=== PATIENT | female | born 1970 | race Caucasian/White ===

== ENCOUNTER 2021-08-16 12:15 | Inpatient (IN) | payer OTHER ==
[~2021-08-16] VITALS: Ht 175.3 cm; Wt 138.3 kg
[~2021-08-16 12:15] MED LIST: AUGMENTIN 875875 M1 PO; TOBREX5 ML OP
[2021-08-16 12:20] VITALS: BP 157/84
[2021-08-16] MEDS ORDERED: METFORMIN HCL500 M2 PO (12:24)
[2021-08-16] MEDS ORDERED: LEVOTHYROXINE50 MC1 PO (12:24)
[2021-08-16 13:24] LABS: ABSOLUTE LYMPHOCYTES 0.5 thou/uL (0.8-5.3); ABSOLUTE MONOCYTES 0.2 thou/uL (0.0-1.2); ABSOLUTE NEUTROPHILS 2.7 thou/uL (1.6-8.1); BASOPHILS 0.6 %; EOSINOPHILS 0.1 %; HEMATOCRIT 39.5 % (37.0-47.0); HEMOGLOBIN 13.6 gm/dL (12.0-15.0); LYMPHOCYTES 13.4 %; MCH 29.3 pg (26.0-34.0); MCHC 34.4 g/dL (28.0-37.0); MCV 85.1 fL (80.0-100.0); MONOCYTES 6.5 %; MPV 8.3 fl. (7.2-11.1); NUCLEATED RBCS 0 /100WBC; PLATELET COUNT* 189 thou/uL (150-400); POLYS 79.4 %; RBC 4.65 mil/uL (4.20-5.00); RDW-CV 13.5 % (10.5-14.5); WBC 3.4 thou/uL (4.0-11.0)
[2021-08-16 13:29] LABS: CALCIUM 7.8 mg/dL (8.5-10.1); CREATININE 0.8 mg/dL (0.6-1.3); POTASSIUM 4.4 mmol/L (3.5-5.1)
[2021-08-16 13:31] LABS: APTT 29.1 Seconds (25.0-31.3); INR 1.1; PROTIME 11.4 Seconds (9.20-11.50)
[2021-08-16 13:40] LABS: ALBUMIN 2.7 g/dL (3.4-5.0); TOTAL BILIRUBIN 0.7 mg/dL (<0.1-1.0); TOTAL PROTEIN 7.1 g/dL (6.4-8.2)
[2021-08-16 16:33] LABS: PCO2 32.1 mmHg (35.0-45.0); pH 7.455 (7.340-7.450)
--- NOTE | 2021-08-16 16:38 | EKG ---
[place] [address] ELECTROCARDIOGRAM REPORT Name: JANIS PARK Room: [place] [address] ADM IN [facility]#: [id number] Admission: 08/16/21 Attend Phys: Ashlie Miranda Discharge: Date of : 72 Date of Service: 08/16/21 1441 Report #: [id number] THIS REPORT FOR: //name// [facility] ED Test Date: 2021-08-16 Test Time: 14:41:17 Pat Name: JANIS DONAHUELER Department: Room: [facility] Gender: F Storeroom Clerk: : 1970 Requested By: Doron Mei Order Number: [id number] MD: Yousif Falcon Measurements Intervals Carpenter Rate: 101 P: 34 [place]: 170 QRS: -12 QRSD: 89 T: 33 QT: 345 QTc: 448 Interpretive Statements Sinus tachycardia RSR' in V1 or V2, probably normal variant No previous ECG available for comparison Electronically Signed On 08-16-2021 16:38:18 [employer] by Yousif Falcon [email or web address] <ELECTRONICALLY SIGNED> By: Yousif Falcon MD, [facility] 08/16/21 1638 1441 1441 Yousif Falcon MD, [facility] /EPI
[2021-08-16] MEDS ORDERED: MUPIROCIN22 GM TOP (18:25)
[2021-08-16] MEDS ORDERED: CEPHALEXIN500 MG PO (18:25)
[2021-08-16 18:35] VITALS: BP 132/78
[2021-08-16 22:00] VITALS: BP 117/67
[2021-08-17] VITALS (8 sets, daily range): BP systolic 108–134; BP diastolic 60–95
[2021-08-17 04:03] LABS: HEMATOCRIT 38.5 % (37.0-47.0); MCH 29.2 pg (26.0-34.0); MCHC 33.8 g/dL (28.0-37.0); MCV 86.3 fL (80.0-100.0); MPV 8.1 fl. (7.2-11.1); RBC 4.46 mil/uL (4.20-5.00); RDW-CV 13.6 % (10.5-14.5); WBC 3.8 thou/uL (4.0-11.0)
[2021-08-17 08:18] LABS: CALCIUM 7.9 mg/dL (8.5-10.1); CREATININE 0.8 mg/dL (0.6-1.3); POTASSIUM 3.7 mmol/L (3.5-5.1)
[2021-08-18 04:08] VITALS: BP 128/74
[2021-08-18 05:21] LABS: ABSOLUTE LYMPHOCYTES 0.5 thou/uL (0.8-5.3); ABSOLUTE MONOCYTES 0.5 thou/uL (0.0-1.2); ABSOLUTE NEUTROPHILS 6.1 thou/uL (1.6-8.1); BASOPHILS 0.1 %; HEMATOCRIT 36.5 % (37.0-47.0); HEMOGLOBIN 12.3 gm/dL (12.0-15.0); LYMPHOCYTES 7.2 %; MCH 29.1 pg (26.0-34.0); MCHC 33.7 g/dL (28.0-37.0); MCV 86.4 fL (80.0-100.0); MONOCYTES 7.3 %; MPV 7.7 fl. (7.2-11.1); NUCLEATED RBCS 0 /100WBC; PLATELET COUNT* 249 thou/uL (150-400); POLYS 85.4 %; RBC 4.22 mil/uL (4.20-5.00); RDW-CV 13.8 % (10.5-14.5); WBC 7.2 thou/uL (4.0-11.0)
[2021-08-18 06:27] LABS: ALBUMIN 2.5 g/dL (3.4-5.0); CALCIUM 8.2 mg/dL (8.5-10.1); CREATININE 0.9 mg/dL (0.6-1.3); MAGNESIUM 2.1 mg/dL (1.8-2.4); PHOSPHORUS* 3.6 mg/dL (2.5-4.9); POTASSIUM 3.5 mmol/L (3.5-5.1); TOTAL BILIRUBIN 0.6 mg/dL (<0.1-1.0); TOTAL PROTEIN 6.2 g/dL (6.4-8.2)
[2021-08-18 08:15] VITALS: BP 128/65
[2021-08-18 10:44] LABS: PCO2 35.7 mmHg (35.0-45.0); pH 7.409 (7.340-7.450)
[2021-08-18 10:47] LABS: PO2 41.8 mmHg (75.0-100.0)
[2021-08-18 12:02] VITALS: BP 109/46
[2021-08-18 14:28] LABS: BE -0.2 mmol/L (-2 to +3); PCO2 32.9 mmHg (35.0-45.0); pH 7.461 (7.340-7.450)
[2021-08-18 14:31] LABS: PO2 188.1 mmHg (75.0-100.0)
[2021-08-18 16:00] VITALS: BP 148/79
[2021-08-18 19:26] VITALS: BP 113/67
[2021-08-19 00:35] VITALS: BP 120/70
[2021-08-19 03:57] LABS: ABSOLUTE LYMPHOCYTES 0.7 thou/uL (0.8-5.3); ABSOLUTE MONOCYTES 0.6 thou/uL (0.0-1.2); ABSOLUTE NEUTROPHILS 5.4 thou/uL (1.6-8.1); BASOPHILS 0.1 %; HEMOGLOBIN 11.7 gm/dL (12.0-15.0); MCH 28.9 pg (26.0-34.0); MCHC 33.4 g/dL (28.0-37.0); MCV 86.7 fL (80.0-100.0); MPV 7.8 fl. (7.2-11.1); NUCLEATED RBCS 0 /100WBC; PLATELET COUNT* 279 thou/uL (150-400); POLYS 80.9 %; RBC 4.04 mil/uL (4.20-5.00); RDW-CV 13.9 % (10.5-14.5); WBC 6.6 thou/uL (4.0-11.0)
[2021-08-19 04:00] VITALS: BP 117/66
[2021-08-19 04:31] LABS: ALBUMIN 2.2 g/dL (3.4-5.0); CREATININE 0.7 mg/dL (0.6-1.3); MAGNESIUM 2.3 mg/dL (1.8-2.4); PHOSPHORUS* 4.3 mg/dL (2.5-4.9); POTASSIUM 3.6 mmol/L (3.5-5.1); TOTAL BILIRUBIN 0.5 mg/dL (<0.1-1.0); TOTAL PROTEIN 5.9 g/dL (6.4-8.2)
[2021-08-19 12:00] VITALS: BP 137/79
[2021-08-19 16:00] VITALS: BP 127/73
[2021-08-19 20:00] VITALS: BP 149/76
[2021-08-20] VITALS: BP 107/60
[2021-08-20 04:00] VITALS: BP 142/76
[2021-08-20 04:23] LABS: ABSOLUTE LYMPHOCYTES 0.8 thou/uL (0.8-5.3); ABSOLUTE MONOCYTES 0.5 thou/uL (0.0-1.2); ABSOLUTE NEUTROPHILS 4.8 thou/uL (1.6-8.1); BASOPHILS 0.1 %; HEMATOCRIT 36.6 % (37.0-47.0); HEMOGLOBIN 12.3 gm/dL (12.0-15.0); LYMPHOCYTES 13.1 %; MCH 28.9 pg (26.0-34.0); MCHC 33.7 g/dL (28.0-37.0); MCV 85.8 fL (80.0-100.0); MONOCYTES 7.8 %; MPV 7.8 fl. (7.2-11.1); NUCLEATED RBCS 0 /100WBC; PLATELET COUNT* 291 thou/uL (150-400); RBC 4.27 mil/uL (4.20-5.00); RDW-CV 13.7 % (10.5-14.5); WBC 6.1 thou/uL (4.0-11.0)
[2021-08-20 04:45] LABS: CALCIUM 7.9 mg/dL (8.5-10.1); CREATININE 0.8 mg/dL (0.6-1.3); POTASSIUM 3.9 mmol/L (3.5-5.1)
[2021-08-20 04:49] LABS: ALBUMIN 2.4 g/dL (3.4-5.0); CALCIUM 8.1 mg/dL (8.5-10.1); CREATININE 0.7 mg/dL (0.6-1.3); MAGNESIUM 2.2 mg/dL (1.8-2.4); POTASSIUM 3.6 mmol/L (3.5-5.1); TOTAL BILIRUBIN 0.6 mg/dL (<0.1-1.0)
[2021-08-20 08:00] VITALS: BP 127/82
--- NOTE | 2021-08-20 11:34 | 2DMMODE ---
[place] [address] 2 D/M-MODE ECHOCARDIOGRAM Name: JANIS PARK Room: [address] IN [facility]#: [id number] Admission: 08/16/21 Attend Phys: Ashlie Miranda Discharge: Date of : 72 Date of Service: 08/20/21 1134 Report #: [id number] THIS REPORT FOR: cc: Ramo Cabezas MD, Karmel MD Holkins,Mikey Lang MD [facility] ~ APPROVED REPORT Study performed: 08/20/2021 09:37:24 EXAM: Comprehensive 2D, Doppler, and color-flow Echocardiogram Patient Location: In-Patient Room #: [facility] Status: routine BSA: 2.47 HR: 79 bpm BP: 127/82 mmHg Rhythm: NSR Other Information Study Quality: Good Indications Dyspnea 2D Dimensions IVSd: 12.04 (7-11mm) LVOT Diam: 19.89 (18-24mm) LVDd: 47.40 mm PWd: 10.30 (7-11mm) Ascending Ao: 34.47 (22-36mm) LVDs: 35.44 (25-40mm) Aortic Root: 33.15 mm Volumes Left Atrial Volume (Systole) LA ESV Index: 26.40 mL/m2 Aortic Valve AoV Peak Bruce.: 1.45 m/s AO Peak Gr.: 8.46 mmHg LVOT Max P.22 mmHg AO Mean Gr.: 4.52 mmHg LVOT Mean P.70 mmHg LVOT Max V: 1.25 m/s AO V2 VTI: 27.27 cm LVOT Mean V: 0.74 m/s SHAHANA (VTI): 2.64 cm2 LVOT V1 VTI: 23.19 [place] [address] 2 D/M-MODE ECHOCARDIOGRAM Name: JANIS PARK Room: [address]#: [id number] Admission: 08/16/21 Attend Phys: Ashlie Miranda Discharge: Date of : 72 Date of Service: 08/20/21 1134 Report #: [id number] Mitral Valve E/A Ratio: 0.73 MV Decel. Time: 145.14 ms MV E Max Bruce.: 0.74 m/s MV PHT: 42.09 ms MVA (PHT): 5.23 cm2 TDI E/Lateral E': 5.29 Lateral E' Bruce.: 0.14 m/s Pulmonary Valve PV Peak Bruce.: 0.86 m/s PV Peak Gr.: 2.93 mmHg Left Ventricle The left ventricle is normal size. There is normal LV segmental wall motion. There is normal left ventricular wall thickness. Left ventricular systolic function is normal. The left ventricular ejection fraction is within the normal range. LVEF is 60%. Grade I - abnormal relaxation pattern. Right Ventricle The right ventricle is normal size. The right ventricular systolic function is normal. Atria The left atrium size is normal. The right atrium size is normal. Aortic Valve The aortic valve is normal in structure. No aortic regurgitation is present. There is no aortic valvular stenosis. Mitral Valve The mitral valve is normal in structure. There is no mitral valve regurgitation noted. No evidence of mitral valve stenosis. Tricuspid Valve The tricuspid valve is normal in structure. Trace tricuspid regurgitation. Unable to assess PA pressure. Pulmonic Valve The pulmonary valve is normal in structure. There is no pulmonic valvular regurgitation[place] [address] 2 D/M-MODE ECHOCARDIOGRAM Name: JANIS PARK Room: [address]#: [id number] Admission: 08/16/21 Attend Phys: Ashlie Miranda Discharge: Date of : 72 Date of Service: 08/20/21 1134 Report #: [id number] The aortic root is normal in size. IVC is normal in size and collapses >50% with inspiration. Pericardium There is no pericardial effusion. <Conclusion> The left ventricle is normal size. There is normal left ventricular wall thickness. Left ventricular systolic function is normal. The left ventricular ejection fraction is within the normal range. LVEF is 60%. Grade I - abnormal relaxation pattern. The right ventricle is normal size. The left atrium size is normal. The aortic valve is normal in structure. The mitral valve is normal in structure. The tricuspid valve is normal in structure. IVC is normal in size and collapses >50% with inspiration. There is no pericardial effusion. There is normal LV segmental wall motion. <ELECTRONICALLY SIGNED> By: Mikey Donovan MD, FACC 08/20/21 1134 1134 1134 Mikey Donovan MD, FACC /INF
[2021-08-20 12:09] VITALS: BP 126/84
--- NOTE | 2021-08-20 18:29 | CON ---
[address] [address] CONSULTATION Name: JANIS PARK Rina Room: [address] IN M.R.#: [id number] Admission: 08/16/21 Attend Phys: Lucius Gan Discharge: Date of : 72 Report #: [id number] THIS REPORT FOR: cc: Ramo Cabezas MD, Karmel MD Pervez, Adeel MD ~ DATE OF CONSULTATION: 08/19/2021 REQUESTING PHYSICIAN: Dr. Miranda. INDICATION FOR CONSULTATION: Acute hypoxemic respiratory failure secondary to COVID-19. HISTORY OF PRESENT ILLNESS: This is a 51-year-old female. She has a history of morbid obesity, body mass index is 45. She appears to have previously undiagnosed obstructive sleep apnea, also does have a history of diabetes and hypothyroidism, has a remote history of smoking, not diagnosed with COPD or asthma in the past, not vaccinated for COVID-19. Now here for acute hypoxemic respiratory failure secondary to COVID-19. Previously, she was on BiPAP. She is now off BiPAP while awake; however, continues to require 100 percent FiO2 with a heated high-flow nasal cannula, continues to complain of shortness of breath. Initially stated that she had some chest discomfort with respirations as well and did have diarrhea. She does have swelling of lower extremities. She does report having had vomiting and fever initially as well. There is not much sputum production. REVIEW OF SYSTEMS: For 12 points is negative except as mentioned above. PAST MEDICAL HISTORY: Diabetes, hypothyroidism, morbid obesity, body mass index 45. I suspect that she has previously undiagnosed obstructive sleep apnea. SOCIAL HISTORY: There is a remote history of smoking. When she was young, she smoked occasionally. Occasional alcohol use. No known history of illegal drug use. CURRENT MEDICATIONS: List in [facility] reviewed. HOME MEDICATIONS: List in [facility] reviewed. ALLERGIES: No known drug allergies. FAMILY HISTORY: No pertinent family history. PHYSICAL EXAMINATION: [place] [address] CONSULTATION Name: JANIS PARK Rina Room: [address]#: [id number] Admission: 08/16/21 Attend Phys: Lucius Gan Discharge: Date of : 72 Report #: [id number] GENERAL: She is alert, awake and oriented, does not appear to be in any distress; however, currently is requiring 100% FiO2 to maintain O2 saturation in the mid 90s with a heated high-flow nasal cannula. VITAL SIGNS: Pulse 77, blood pressure 137/79. She is currently afebrile. Respiratory rate is in the high teens to low 20s. HEENT: Head is normocephalic and atraumatic. NECK: Does not show raised JVP, asymmetry, mass or lymph nodes. Appears to have a narrow airway. CHEST: Symmetrical expansion on inspection and palpation. On auscultation, breath sounds are bilaterally equal. I do not hear any added sounds. HEART: Regular. There is no murmur. ABDOMEN: Soft and nontender. EXTREMITIES: Lower extremities, 1+ edema. No calf tenderness. SKIN: Dry and intact. NEUROLOGIC: Moves all extremities bilaterally equally and spontaneously with no focal deficit identified. Last available chest x-ray is from yesterday and shows bilateral infiltrates consistent with COVID-19. There may be a component of increase in pulmonary vascular congestion as well. Ultrasound of the abdomen was performed yesterday reported in [facility] reviewed. LABORATORY WORK: In [facility] reviewed. Elevated LFTs noted. ASSESSMENT AND PLAN: 1. Acute hypoxemic respiratory failure secondary to COVID-19, still recommend keeping her on BiPAP while asleep. She is off BiPAP while awake. Avoid supine sleep, titrate oxygen. 2. COVID-19. She is on dexamethasone. We will give her additional 10 mg of dexamethasone now. I did not change the scheduled dose of 6 mg daily. We will consider increasing it should her hypoxemia failed to improve tomorrow. She is on remdesivir. LFTs are elevated. At this point, benefit appears to outweigh risks and therefore we would considering discontinuing remdesivir if LFTs rise. Recommend checking a lipase level. I will also go ahead and give her a dose of Actemra now. 3. Pulmonary infiltrates. Agree with covering with broad-spectrum antibiotics to cover for secondary bacterial infection. We would switch Zithromax to p.o. We will do more cultures and serologies. 4. Fluid overload/edema. Despite the fact that she has a history of diarrhea, she does have edema and overall appears to be total body fluid overloaded, I will go ahead and give her a dose of Lasix with Aldactone and potassium now and reassess tomorrow. Ordered an echo. Also ordered venous Dopplers. We will reassess with D-dimer tomorrow regarding whether a CTA chest should be considered. We will need to check BUN and creatinine tomorrow as well as we are [address] [place] [address] CONSULTATION Name: JANIS PARK Room: [address] IN .R.#: [id number] Admission: 08/16/21 Attend Phys: Lucius Gan Discharge: Date of : 72 Report #: [id number] giving her diuresis today. 5. Hyperglycemia. Start insulin sliding scale. 6. Deep venous thrombosis prophylaxis. For now, we will give her intermediate dose Lovenox. 7. Clostridium difficile prophylaxis, Lactinex. 8. Gastrointestinal prophylaxis. She is already on Protonix. 9. Rhabdomyolysis. Initially, she did have a significantly elevated CPK, this has been trending downwards. Therefore, I did order a dose of diuresis as above, but we will watch her CPK closely in case this raises and I would give her IV fluids while at the same time giving her diuresis in order to avoid worsening fluid overload. The patient is critically ill at this time. Total time spent providing critical care to the patient today exceeds 40 minutes. <ELECTRONICALLY SIGNED> By: Espinoza Pino MD 08/20/21 1829 1458 [id number] Pino MD /nt
[2021-08-20 20:00] VITALS: BP 138/82
[2021-08-21] VITALS: BP 140/69
[2021-08-21 04:00] VITALS: BP 144/94
[2021-08-21 04:19] LABS: ABSOLUTE LYMPHOCYTES 0.8 thou/uL (0.8-5.3); ABSOLUTE MONOCYTES 0.3 thou/uL (0.0-1.2); ABSOLUTE NEUTROPHILS 5.1 thou/uL (1.6-8.1); HEMATOCRIT 37.3 % (37.0-47.0); HEMOGLOBIN 12.6 gm/dL (12.0-15.0); LYMPHOCYTES 12.4 %; MCH 28.8 pg (26.0-34.0); MCHC 33.9 g/dL (28.0-37.0); MCV 84.9 fL (80.0-100.0); MONOCYTES 4.3 %; MPV 7.6 fl. (7.2-11.1); NUCLEATED RBCS 0 /100WBC; PLATELET COUNT* 272 thou/uL (150-400); POLYS 83.3 %; RBC 4.39 mil/uL (4.20-5.00); RDW-CV 13.7 % (10.5-14.5); WBC 6.1 thou/uL (4.0-11.0)
[2021-08-21 04:48] LABS: ALBUMIN 2.5 g/dL (3.4-5.0); CALCIUM 8.1 mg/dL (8.5-10.1); CREATININE 0.7 mg/dL (0.6-1.3); MAGNESIUM 2.2 mg/dL (1.8-2.4); PHOSPHORUS* 4.5 mg/dL (2.5-4.9); POTASSIUM 4.1 mmol/L (3.5-5.1); TOTAL BILIRUBIN 0.6 mg/dL (<0.1-1.0); TOTAL PROTEIN 6.3 g/dL (6.4-8.2)
[2021-08-21 05:51] LABS: BE -0.9 mmol/L (-2 to +3); PCO2 32.1 mmHg (35.0-45.0); pH 7.458 (7.340-7.450)
[2021-08-21 06:19] LABS: PO2 227.2 mmHg (75.0-100.0)
[2021-08-21 08:30] VITALS: BP 130/73
[2021-08-21 12:33] VITALS: BP 112/60
[2021-08-21 16:00] VITALS: BP 125/67
[2021-08-21 20:00] VITALS: BP 121/61
[2021-08-22] VITALS (7 sets, daily range): BP systolic 105–133; BP diastolic 55–85
[2021-08-22 04:22] LABS: ABSOLUTE LYMPHOCYTES 0.7 thou/uL (0.8-5.3); ABSOLUTE MONOCYTES 0.3 thou/uL (0.0-1.2); ABSOLUTE NEUTROPHILS 6.4 thou/uL (1.6-8.1); BASOPHILS 0.1 %; HEMATOCRIT 38.1 % (37.0-47.0); HEMOGLOBIN 12.7 gm/dL (12.0-15.0); MCH 28.7 pg (26.0-34.0); MCHC 33.3 g/dL (28.0-37.0); MCV 86.2 fL (80.0-100.0); MPV 7.9 fl. (7.2-11.1); NUCLEATED RBCS 0 /100WBC; PLATELET COUNT* 287 thou/uL (150-400); POLYS 85.9 %; RBC 4.42 mil/uL (4.20-5.00); RDW-CV 13.3 % (10.5-14.5); WBC 7.5 thou/uL (4.0-11.0)
[2021-08-22 04:44] LABS: ALBUMIN 2.7 g/dL (3.4-5.0); CALCIUM 7.9 mg/dL (8.5-10.1); CREATININE 0.9 mg/dL (0.6-1.3); MAGNESIUM 2.2 mg/dL (1.8-2.4); POTASSIUM 4.4 mmol/L (3.5-5.1); TOTAL BILIRUBIN 0.6 mg/dL (<0.1-1.0)
[2021-08-23 04:00] VITALS: BP 151/82
[2021-08-23 04:18] LABS: HEMATOCRIT 38.5 % (37.0-47.0); HEMOGLOBIN 12.9 gm/dL (12.0-15.0); MCHC 33.6 g/dL (28.0-37.0); MCV 86.3 fL (80.0-100.0); MPV 7.8 fl. (7.2-11.1); NUCLEATED RBCS 0 /100WBC; PLATELET COUNT* 301 thou/uL (150-400); RBC 4.46 mil/uL (4.20-5.00); RDW-CV 13.7 % (10.5-14.5); WBC 9.2 thou/uL (4.0-11.0)
[2021-08-23 04:32] LABS: ALBUMIN 2.6 g/dL (3.4-5.0); CREATININE 0.8 mg/dL (0.6-1.3); MAGNESIUM 2.3 mg/dL (1.8-2.4); PHOSPHORUS* 3.9 mg/dL (2.5-4.9); POTASSIUM 4.5 mmol/L (3.5-5.1); TOTAL BILIRUBIN 0.5 mg/dL (<0.1-1.0)
[2021-08-23 06:28] LABS: ABSOLUTE LYMPHOCYTES 1.9 thou/uL (0.8-5.3); ABSOLUTE NEUTROPHILS 7.3 thou/uL (1.6-8.1); CLUMPED PLTS FEW; PLATELET ESTIMATE ADEQUATE
[2021-08-23 08:00] VITALS: BP 121/67
[2021-08-23 12:00] VITALS: BP 116/68
[2021-08-23 16:00] VITALS: BP 100/73
[2021-08-23 20:00] VITALS: BP 119/68
[2021-08-24 00:15] VITALS: BP 143/72
[2021-08-24 04:00] VITALS: BP 120/71
[2021-08-24 08:00] VITALS: BP 116/66
[2021-08-24 08:53] LABS: ABSOLUTE LYMPHOCYTES 0.7 thou/uL (0.8-5.3); ABSOLUTE MONOCYTES 0.4 thou/uL (0.0-1.2); ABSOLUTE NEUTROPHILS 7.6 thou/uL (1.6-8.1); BASOPHILS 0.1 %; HEMATOCRIT 41.8 % (37.0-47.0); LYMPHOCYTES 8.4 %; MCHC 33.6 g/dL (28.0-37.0); MCV 86.3 fL (80.0-100.0); MONOCYTES 4.2 %; MPV 8.1 fl. (7.2-11.1); NUCLEATED RBCS 0 /100WBC; PLATELET COUNT* 296 thou/uL (150-400); POLYS 87.3 %; RBC 4.85 mil/uL (4.20-5.00); RDW-CV 13.6 % (10.5-14.5); WBC 8.8 thou/uL (4.0-11.0)
[2021-08-24 09:01] LABS: CALCIUM 8.3 mg/dL (8.5-10.1); CREATININE 0.7 mg/dL (0.6-1.3); POTASSIUM 4.4 mmol/L (3.5-5.1)
[2021-08-24 11:53] VITALS: BP 121/50
[2021-08-24 16:00] VITALS: BP 119/70
[2021-08-24 20:10] VITALS: BP 116/73
[2021-08-25] VITALS (7 sets, daily range): BP systolic 103–121; BP diastolic 53–75
[2021-08-25] MEDS ORDERED: ELIQUIS5 MG PO (07:17)
[2021-08-25] MEDS ORDERED: PROTONIX40 M2 PO (07:17)
[2021-08-25] MEDS ORDERED: DEXAMETHASONE1 MG PO (07:19)
[2021-08-26 04:00] VITALS: BP 109/60
[2021-08-26 08:00] VITALS: BP 130/79
[2021-08-26 12:00] VITALS: BP 126/74
[2021-08-26 16:00] VITALS: BP 127/72
[2021-08-26 23:10] VITALS: BP 134/84
[2021-08-27] VITALS (7 sets, daily range): BP systolic 96–132; BP diastolic 51–83
[2021-08-28] VITALS (7 sets, daily range): BP systolic 107–131; BP diastolic 66–77
== END 2021-08-28 17:15 | disposition home or self-care (01) | DRG 871 ==
LOC: M.ERS 12:15 → M.ORTHSURG 14:36 → M.TBA-ER 14:36 → M.ORTHSURG 08-17 13:38 → M.2W 08-24 00:26
PROVIDERS: Emergency Medicine; Internal Medicine; Internal Medicine Critical Care Medicine; ADMIT Internal Medicine; ATTEND Internal Medicine
PROC: 5A0935A Assistance with Respiratory Ventilation, Less than 24 Consecutive Hours, High Flow/Velocity Cannula (ICD-10-PCS; principal; 2021-08-17)
PROC: XW033E5 Introduction of Remdesivir Anti-infective into Peripheral Vein, Percutaneous Approach, New Technology Group 5 (ICD-10-PCS; 2021-08-18)
PROC: 5A09357 Assistance with Respiratory Ventilation, Less than 24 Consecutive Hours, Continuous Positive Airway Pressure (ICD-10-PCS; 2021-08-18)
PROC: 5A0935A Assistance with Respiratory Ventilation, Less than 24 Consecutive Hours, High Flow/Velocity Cannula (ICD-10-PCS; 2021-08-19)
PROC: 5A09357 Assistance with Respiratory Ventilation, Less than 24 Consecutive Hours, Continuous Positive Airway Pressure (ICD-10-PCS; 2021-08-19)
PROC: 5A09357 Assistance with Respiratory Ventilation, Less than 24 Consecutive Hours, Continuous Positive Airway Pressure (ICD-10-PCS; 2021-08-20)
PROC: 5A0935A Assistance with Respiratory Ventilation, Less than 24 Consecutive Hours, High Flow/Velocity Cannula (ICD-10-PCS; 2021-08-20)
PROC: 5A0935A Assistance with Respiratory Ventilation, Less than 24 Consecutive Hours, High Flow/Velocity Cannula (ICD-10-PCS; 2021-08-21)
PROC: 5A09357 Assistance with Respiratory Ventilation, Less than 24 Consecutive Hours, Continuous Positive Airway Pressure (ICD-10-PCS; 2021-08-21)
PROC: 5A0945A Assistance with Respiratory Ventilation, 24-96 Consecutive Hours, High Flow/Velocity Cannula (ICD-10-PCS; 2021-08-22)
PROC: 5A09357 Assistance with Respiratory Ventilation, Less than 24 Consecutive Hours, Continuous Positive Airway Pressure (ICD-10-PCS; 2021-08-24)
PROC: 5A0935A Assistance with Respiratory Ventilation, Less than 24 Consecutive Hours, High Flow/Velocity Cannula (ICD-10-PCS; 2021-08-24)
PROC: 5A0935A Assistance with Respiratory Ventilation, Less than 24 Consecutive Hours, High Flow/Velocity Cannula (ICD-10-PCS; 2021-08-25)
PROC: 5A09357 Assistance with Respiratory Ventilation, Less than 24 Consecutive Hours, Continuous Positive Airway Pressure (ICD-10-PCS; 2021-08-25)
PROC: 5A09357 Assistance with Respiratory Ventilation, Less than 24 Consecutive Hours, Continuous Positive Airway Pressure (ICD-10-PCS; 2021-08-26)
PROC: 5A0935A Assistance with Respiratory Ventilation, Less than 24 Consecutive Hours, High Flow/Velocity Cannula (ICD-10-PCS; 2021-08-26)
PROC: 05HC33Z Insertion of Infusion Device into Left Basilic Vein, Percutaneous Approach (ICD-10-PCS; 2021-08-27)
PROC: 5A0935A Assistance with Respiratory Ventilation, Less than 24 Consecutive Hours, High Flow/Velocity Cannula (ICD-10-PCS; 2021-08-27)
PROC: 5A09357 Assistance with Respiratory Ventilation, Less than 24 Consecutive Hours, Continuous Positive Airway Pressure (ICD-10-PCS; 2021-08-27)
DX: A41.89 Other specified sepsis (principal); U07.1 COVID-19; J96.01 Acute respiratory failure with hypoxia; J12.82 Pneumonia due to coronavirus disease 2019; I26.99 Other pulmonary embolism without acute cor pulmonale; M62.82 Rhabdomyolysis; E87.1 Hypo-osmolality and hyponatremia; Z68.42 Body mass index [BMI] 45.0-49.9, adult; E03.9 Hypothyroidism, unspecified; R74.01 Elevation of levels of liver transaminase levels; E66.01 Morbid (severe) obesity due to excess calories; E11.65 Type 2 diabetes mellitus with hyperglycemia; E86.0 Dehydration; G47.33 Obstructive sleep apnea (adult) (pediatric); Z79.899 Other long term (current) drug therapy